=== PATIENT | female | born 1995 | race Caucasian/White ===

== ENCOUNTER 2021-04-11 18:32 | Emergency (ER) | payer OTHER ==
[~2021-04-11 18:32] MED LIST: BACLOFEN 10MG T10 MG PO; CYCLOBENZAPRINE10 MG PO; MACROBID100 MG PO; NABUMETONE750 MG PO; NAPROSYN500 MG PO; NAPROXEN500 MG PO; ONDANSETRON ODT4 MG SL; PREDNISONE 20MG20 MG PO; VOLTAREN **OUT75 MG PO; ZOFRAN4 MG PO
[2021-04-11 19:17] LABS: BASOPHIL 0.5 % (0-2); EOSINOPHIL 0.8 % (0-5); HCT 44.5 % (37.0-47.0); HGB 14.6 g/dl (12.5-16.0); MCH 30.9 pg (25.0-31.0); MCHC 32.8 g/dL (32.0-36.0); MCV 94.3 fL (78.0-100.0); MONOCYTE 5.5 % (0-12); MPV 11.3 fL (6.0-9.5); NEUTROPHIL 77.8 % (41-80); NRBC 0; PLT 260 K/uL (150-400); RBC 4.72 M/uL (4.20-5.40); RDW 12.9 % (11.5-14.0); WBC 15.9 K/uL (4.0-10.5)
[2021-04-11 19:37] LABS: ALBUMIN 4.1 g/dL (3.4-5.0); BILIRUBIN - TOTAL 0.3 mg/dL (0.2-1.0); BUN/CREAT RATIO (CALC) 13.7 RATIO; CREATININE 0.73 mg/dL (0.51-0.95); GLOBULIN (CALCULATION) 3.8 g/dL; INR 1.06 (0.9-1.2); POTASSIUM 3.7 mmol/L (3.5-5.1); PROTHROMBIN TIME 13.2 SECONDS (11.8-13.4); TOTAL PROTEIN 7.9 g/dL (6.4-8.2)
[2021-04-11] MEDS ORDERED: FLEXERIL5 MG PO (20:53)
[2021-04-11 22:59] LABS: BILIRUBIN NEGATIVE (NEGATIVE); BLOOD TRACE-INTACT Ery/uL (NEGATIVE); CLARITY CLEAR (CLEAR); COLOR YELLOW (YELLOW); GLUCOSE (U) NORMAL (NORMAL); LEUKOCYTES TRACE Leu/uL (NEGATIVE); NITRITE NEGATIVE (NEGATIVE); PROTEIN NEGATIVE (NEGATIVE); UROBILINOGEN 0.2 mg/dL (0.2-1.0)
[2021-04-11 23:07] LABS: BACTERIA TRACE
== END 2021-04-11 23:30 | disposition home or self-care (01) ==
LOC: FER 18:32
PROVIDERS: Emergency Medicine
DX: S00.83XA Contusion of other part of head, initial encounter (principal); S00.03XA Contusion of scalp, initial encounter; S80.212A Abrasion, left knee, initial encounter; S80.211A Abrasion, right knee, initial encounter; S50.312A Abrasion of left elbow, initial encounter; S50.311A Abrasion of right elbow, initial encounter; S20.412A Abrasion of left back wall of thorax, initial encounter; Z88.6 Allergy status to analgesic agent; Z23 Encounter for immunization; V49.9XXA Car occupant (driver) (passenger) injured in unspecified traffic accident, initial encounter; Y93.89 Activity, other specified; Y92.410 Unspecified street and highway as the place of occurrence of the external cause
CPT/HCPCS: 36415; 70450; 71260; 72125; 73070; 73560; 80053; 81001; 82550; 83690; 84484; 85025; 85610; 90471; 90715; 93005; G0480; J1170; J1885; J2405; J7030; Q9967

== ENCOUNTER 2021-08-10 08:41 | Emergency (ER) | payer OTHER ==
[~2021-08-10 08:41] MED LIST changes: +FLEXERIL5 MG PO
[2021-08-10] MEDS ORDERED: AMPHETAMINE SAL20 MG PO (09:33)
[2021-08-10] MEDS ORDERED: NEXPLANON68 MG XX (09:34)
[2021-08-10 10:26] LABS: BASOPHIL 0.5 % (0-2); EOSINOPHIL 3.3 % (0-5); HCT 41.6 % (37.0-47.0); HGB 13.5 g/dl (12.5-16.0); LYMPHOCYTE 33.5 % (15-48); MCH 31.1 pg (25.0-31.0); MCHC 32.5 g/dL (32.0-36.0); MCV 95.9 fL (78.0-100.0); MONOCYTE 7.1 % (0-12); MPV 11.1 fL (6.0-9.5); NEUTROPHIL 55.5 % (41-80); NRBC 0; PLT 214 K/uL (150-400); RBC 4.34 M/uL (4.20-5.40); RDW 12.9 % (11.5-14.0); WBC 7.9 K/uL (4.0-10.5)
[2021-08-10 10:28] LABS: BILIRUBIN NEGATIVE (NEGATIVE); BLOOD TRACE-INTACT Ery/uL (NEGATIVE); CLARITY CLEAR (CLEAR); COLOR YELLOW (YELLOW); GLUCOSE (U) NORMAL (NORMAL); LEUKOCYTES NEGATIVE Leu/uL (NEGATIVE); NITRITE NEGATIVE (NEGATIVE); PROTEIN NEGATIVE (NEGATIVE); SPECIFIC GRAVITY >=1.030 (1.001-1.030); UROBILINOGEN 0.2 mg/dL (0.2-1.0)
[2021-08-10 10:33] LABS: AMPHETAMINES NEGATIVE (NEGATIVE); BARBITURATES NEGATIVE (NEGATIVE); ECSTASY (MDMA) NEGATIVE (NEGATIVE); MARIJUANA (THC) POSITIVE (NEGATIVE); METHADONE NEGATIVE (NEGATIVE); OPIATES NEGATIVE (NEGATIVE); OXYCODONE NEGATIVE (NEGATIVE)
[2021-08-10 10:34] LABS: BUN/CREAT RATIO (CALC) 15.6 RATIO; CREATININE 0.64 mg/dL (0.51-0.95); POTASSIUM 3.8 mmol/L (3.5-5.1)
[2021-08-10 10:40] LABS: LACTIC ACID 0.4 mmol/L (0.4-1.9)
== END 2021-08-10 12:09 | disposition home or self-care (01) ==
LOC: FER 08:41
PROVIDERS: Emergency Medicine
DX: R55 Syncope and collapse (principal); Z28.310 Unvaccinated for COVID-19
CPT/HCPCS: 36415; 70450; 80048; 80305; 81001; 83605; 85025; 93005

== ENCOUNTER 2021-11-03 09:22 | Emergency (ER) | payer OTHER ==
[~2021-11-03 09:22] MED LIST changes: +AMPHETAMINE SAL20 MG PO; +NEXPLANON68 MG XX
[2021-11-03 11:57] LABS: BASOPHIL 0.6 % (0-2); HCT 44.7 % (37.0-47.0); HGB 14.6 g/dl (12.5-16.0); LYMPHOCYTE 40.3 % (15-48); MCHC 32.7 g/dL (32.0-36.0); MCV 94.9 fL (78.0-100.0); MPV 11.6 fL (6.0-9.5); NEUTROPHIL 49.9 % (41-80); NRBC 0; PLT 257 K/uL (150-400); RBC 4.71 M/uL (4.20-5.40); RDW 12.6 % (11.5-14.0); WBC 9.5 K/uL (4.0-10.5)
[2021-11-03 12:23] LABS: ALBUMIN 3.9 g/dL (3.4-5.0); BILIRUBIN - TOTAL 0.6 mg/dL (0.2-1.0); BUN/CREAT RATIO (CALC) 14.3 RATIO; CREATININE 0.7 mg/dL (0.51-0.95); GLOBULIN (CALCULATION) 4.3 g/dL; POTASSIUM 3.7 mmol/L (3.5-5.1); TOTAL PROTEIN 8.2 g/dL (6.4-8.2)
[2021-11-03 12:51] LABS: BILIRUBIN NEGATIVE (NEGATIVE); BLOOD TRACE-INTACT Ery/uL (NEGATIVE); CLARITY CLEAR (CLEAR); COLOR YELLOW (YELLOW); GLUCOSE (U) NORMAL (NORMAL); LEUKOCYTES 2+ Leu/uL (NEGATIVE); NITRITE NEGATIVE (NEGATIVE); PROTEIN NEGATIVE (NEGATIVE); SPECIFIC GRAVITY >=1.030 (1.001-1.030); UROBILINOGEN 0.2 mg/dL (0.2-1.0); pH 5.5 (5.0-9.0)
[2021-11-03 12:58] LABS: BACTERIA 1+; CALCIUM OXALATE CRYSTALS TRACE; URINARY RBC RARE
[2021-11-03] MEDS ORDERED: CEPHALEXIN500 MG PO (13:19)
[2021-11-03] MEDS ORDERED: PROTONIX 40MG T40 MG PO (13:19)
[2021-11-03] MEDS ORDERED: PROMETHEGA12.5 MG/SU PR (13:19)
== END 2021-11-03 14:12 | disposition home or self-care (01) ==
LOC: FER 09:22
PROVIDERS: Emergency Medicine
DX: N39.0 Urinary tract infection, site not specified (principal); K21.9 Gastro-esophageal reflux disease without esophagitis; R11.2 Nausea with vomiting, unspecified; Z28.310 Unvaccinated for COVID-19; Z88.6 Allergy status to analgesic agent
CPT/HCPCS: 36415; 80053; 81001; 85025; 87088; C9113; J0696; J2550